=== PATIENT | female | born 1935 | race Caucasian/White ===

== ENCOUNTER → 2019-12-21 13:28 | Outpatient (CLI) | payer MEDICARE, MEDICAID, SELFPAY ==
--- NOTE | 2019-12-21 | DI.ECHO.S_ITS ---
[facility] +---------+ : : [address] : : : : [id number] : : : : Phone: [phone]---------+ Echocardiogram Report + + :Name: DAVID MENDIETA Study Date: 12/21/2019 Height: 61 in : :[facility] Weight: 171 lb : : Gender: Female BSA: 1.8 m2 : :: 1935 Age: 83 yrs BP: 130/61 mmHg: :Reason For Study: DIZZINESS AND GIDDINESS : :Ordering Physician: JINNY, : :ALICE Performed By: Yasmin Calderon : :Referring: ALICE STEARNS : + + Interpretation Summary The left ventricle is mildly dilated. Left ventricular ejection fraction is estimated to be 40 +/- 5%. There has been no significant change in LVEF since the previous exam. The right ventricle is normal size. Right ventricular systolic function is at the lower limits of normal. There is a pacemaker lead in the right ventricle. No significant valvular pathology seen. Procedure: A two-dimensional transthoracic echocardiogram with color flow and Doppler was performed. The study quality was technically adequate. Comparison is made with the echocardiogram of 07/06/2017. The heart rate ranged between 56-65 bpm during the study. The patient was in normal sinus rhythm during the exam. The patient has a paced rhythm. Left Ventricle: The left ventricle is mildly dilated. Proximal septal thickening is noted. There is no thrombus. Left ventricular ejection fraction is estimated to be 40 +/- 5%. There has been no significant change since the previous exam. Diastolic parameters suggest a relaxation abnormality of the left ventricle, consistent with probable normal filling pressures. Right Ventricle: The right ventricle is normal size. There is a pacemaker lead in the right ventricle. Right ventricular systolic function is at the lower limits of normal. Atria: Both atria are normal in size. There is no Doppler evidence for an interatrial shunt. Mitral Valve: There is mild mitral annular calcification. The mitral valve chordae are thickened and/or calcified. There is mild mitral regurgitation. Compared to the prior echo study, there has been a decrease in the severity of mitral regurgitation. Aortic Valve: The aortic valve is trileaflet. The aortic valve opens well. The aortic valve is mildly calcified. There is no aortic valve stenosis. There is mild aortic regurgitation. Tricuspid Valve: The tricuspid valve is normal in structure and function. There is mild tricuspid regurgitation. The right ventricular systolic pressure is estimated to be at least 22 mmHg based on an estimated right atrial pressure of 3 mm Hg. Compared to the prior echo exam, there has been no change in TR severity. Pulmonic Valve: The pulmonic valve is normal in structure and function. There is mild pulmonic regurgitation. Great Vessels: The aortic root is normal size. The ascending aorta is at the upper limits of normal in size. Mild atherosclerotic plaque(s) in the aortic arch. The IVC is of normal diameter and collapses greater than 50% with a sniff. This suggests a low right atrial pressure of 3 mm Hg. Pericardium/ Pleura There is no pericardial effusion. There is no pleural effusion. MMode/2D Measurements & Calculations LVIDd: 5.6 cm LVOT diam: 2.0 cm LVIDs: 4.0 cm Ao root diam: 3.6 cm FS: 29.0 % asc Aorta Diam: 3.4 cm EPSS: 1.1 cm Ao Arch Diam (Prox Trans): 3.0 cm IVSd: 0.96 cm LVPWd: 0.79 cm LV mauro. diameter/BSA (cm/m^2): 3.2 LV sys. diameter/BSA (cm/m^2): 2.3 LA A2 area: 19.2 cm2 RA long axis: 5.4 cm LA A4 area: 17.2 cm2 RA area: 15.9 cm2 LA length (vol): 5.4 cm RA vol: 39.7 ml LA vol: 51.7 ml RA : 22.5 ml/m2 LA vol index: 29.2 ml/m2 IVC diam: 0.88 cm RVD1 (basal): 3.1 cm TAPSE: 1.7 cm Doppler Measurements & Calculations Ao V2 max: 119.6 cm/sec LVOT Max Santana: 92.8 cm/sec Ao V2 mean: 85.8 cm/sec LV V1 max P.4 mmHg Ao max P.7 mmHg LV V1 VTI: 20.4 cm Ao mean P.2 mmHg CARLTON(I,D): 2.8 cm2 Ao V2 VTI: 23.8 cm CARLTON(V,D): 2.5 cm2 sev ratio: 0.86 CARLTON indexed to BSA (cm^2/m^2): 1.6 MV E max santana: 62.3 cm/sec TR max santana: 216.6 cm/sec MV A max santana: 81.1 cm/sec TR max P.8 mmHg MV E/A: 0.77 Med Peak E' Santana: 4.6 cm/sec E/E' med: 13.4 Lat Peak E' Santana: 6.1 cm/sec E/E' lat: 10.2 E/e' average: 11.8 MV dec time: 0.32 sec SV(LVOT): 66.3 ml Reading Physician:04:51 PM
== END ==
PROVIDERS: PCP Family Medicine; Referring Provider Internal Medicine Cardiovascular Disease; Visit Provider Internal Medicine Cardiovascular Disease
DX: I08.3 Combined rheumatic disorders of mitral, aortic and tricuspid valves (principal); I70.0 Atherosclerosis of aorta; R42 Dizziness and giddiness
CPT/HCPCS: 93306

== ENCOUNTER → 2020-09-19 10:01 | Outpatient (CLI) | payer MEDICARE, MEDICAID, SELFPAY ==
--- NOTE | 2020-09-19 10:04 | DI.ECHO.S_ITS ---
[facility]---------+ [facility] +---------+ : : [address] : : : : [id number] : : : : Phone: [phone] +---------+ Echocardiogram Report + + :Name: DAVID MENDIETA Study Date: 09/19/2020 Height: 62 in : :[facility] ReadingLocation: Weight: 164 lb : : Gender: Female BSA: 1.8 m2 : :: 1935 Age: 84 yrs BP: 170/92 mmHg: :Reason For Study: SHORTNESS OF BREATH : :Ordering Physician: JINNY, : :ALICE Performed By: Yasmin Calderon : :Referring: ALICE STEARNS : + + Interpretation Summary The left ventricle is mildly dilated. The ejection fraction is estimated to be 40-45%. There has been no significant change in LVEF since the previous exam. There is a hypokinesis of inferior wall, extending into the posterior lateral wall as well as basal to mid anterolateral wall. Basal inferior septum hypokinetic as well.There is a worsening basal to mid anterolateral wall hypokinesis. The right ventricle is normal size. Right ventricular systolic function is mildly reduced. There is a pacemaker lead in the right ventricle. There is moderate mitral regurgitation. Compared to the prior echo study, there has been an increase in the severity of mitral regurgitation. There is moderate tricuspid regurgitation. Compared to the prior echo exam, there has been an increase in TR severity. The right ventricular systolic pressure is estimated to be at least 32 mmHg based on an estimated right atrial pressure of 3 mm Hg. Procedure: A two-dimensional transthoracic echocardiogram with color flow and Doppler was performed. The study quality was technically adequate. Comparison is made with the echocardiogram of 12/21/2019. A contrast injection of Definity was performed to improve assessment of LV function. The heart rate ranged between 47-57 bpm during the study. Left Ventricle: The left ventricle is mildly dilated. The estimated left ventricular end diastolic volume is 129 ml. There is normal left ventricular wall thickness. There is no thrombus. The ejection fraction is estimated to be 40-45%. There has been no significant change since the previous exam. There is a moderate dyssynchronous contraction pattern due to the paced rhythm. There is a hypokinesis of inferior wall, extending into the posterior lateral wall as well as basal to mid anterolateral wall. Basal inferior septum hypokinetic as well. E/E' med: 25.9. Right Ventricle: There is a pacemaker lead in the right ventricle. The right ventricle is normal size. Right ventricular systolic function is mildly reduced. Atria: The left atrium is severely dilated. The left atrium has significantly increased in size since the prior echo exam. There is a catheter/pacemaker lead seen in the right atrium. The right atrium is moderate to severely dilated. There is no Doppler evidence for an interatrial shunt. Mitral Valve: There is mild mitral annular calcification. The mitral valve leaflets appear mildly thickened, but open well. The mitral valve chordae are thickened and/or calcified. There is moderate mitral regurgitation. Compared to the prior echo study, there has been an increase in the severity of mitral regurgitation. Aortic Valve: The aortic valve is trileaflet. There is mild aortic valve sclerosis. There is no aortic valve stenosis. There is trace aortic regurgitation. Tricuspid Valve: The tricuspid valve is not well visualized. There is moderate tricuspid regurgitation. The right ventricular systolic pressure is estimated to be at least 32 mmHg based on an estimated right atrial pressure of 3 mm Hg. Compared to the prior echo exam, there has been an increase in TR severity. Pulmonic Valve: The pulmonic valve is not well seen, but is grossly normal. There is trace pulmonic regurgitation. Great Vessels: The aortic root is normal size. The dimensions of the ascending aorta are normal. The IVC is of normal diameter and collapses greater than 50% with a sniff. This suggests a low right atrial pressure of 3 mm Hg. Pericardium/ Pleura There is no pericardial effusion. There is no pleural effusion. MMode/2D Measurements & Calculations LVIDd: 5.2 cm LVOT diam: 2.0 cm LVIDs: 4.1 cm Ao root diam: 3.5 cm FS: 20.5 % asc Aorta Diam: 3.1 cm EPSS: 1.3 cm Ao Arch Diam (Prox Trans): 2.9 cm IVSd: 0.96 cm LVPWd: 1.0 cm LV mauro. diameter/BSA (cm/m^2): 2.9 LV sys. diameter/BSA (cm/m^2): 2.3 LA A2 area: 27.5 cm2 RA long axis: 6.2 cm LA A4 area: 25.1 cm2 RA area: 24.2 cm2 LA length (vol): 6.4 cm RA vol: 79.5 ml LA vol: 90.6 ml RA : 45.3 ml/m2 LA vol index: 51.6 ml/m2 IVC diam: 2.0 cm RVD1 (basal): 3.1 cm TAPSE: 1.4 cm Doppler Measurements & Calculations Ao V2 max: 167.5 cm/sec LVOT Max Santana: 93.1 cm/sec Ao V2 mean: 105.6 cm/sec LV V1 max P.5 mmHg Ao max P.2 mmHg LV V1 VTI: 18.1 cm Ao mean P.2 mmHg CARLTON(I,D): 1.5 cm2 Ao V2 VTI: 36.6 cm CARLTON(V,D): 1.7 cm2 sev ratio: 0.49 CARLTON indexed to BSA (cm^2/m^2): 0.87 MV E max santana: 129.9 cm/sec TR max santana: 267.8 cm/sec MV A max santana: 1.5 cm/sec TR max P.8 mmHg MV E/A: 85.1 PA V2 max: 124.5 cm/sec Med Peak E' Santana: 5.0 cm/sec PA V2 mean: 76.9 cm/sec E/E' med: 25.9 PA mean P.7 mmHg Lat Peak E' Santana: 7.7 cm/sec PA pr(Accel): 29.3 mmHg E/E' lat: 17.0 E/e' average: 21.4 MV dec time: 0.24 sec MR ERO: 0.21 cm2 MR PISA: 3.4 cm2 SV(LVOT): 55.8 ml MR flow rate: 114.1 cm3/sec MR PISA radius: 0.73 cm Reading Physician:06:07 PM
--- NOTE | 2020-09-19 17:24 | DI.NM.S_ITS ---
DATE OF SERVICE: 09/19/2020 PROCEDURE: Pharmacological perfusion study. INDICATIONS: Chest pain, exertional shortness of breath, known history of bypass surgery in 1986, inferoposterior ST-elevation [place] in November,, status post PCI of RCA. RADIOPHARMACEUTICAL: 25.0 millicurie technetium-99m Myoview IV was injected at stress and 12.0 millicurie technetium-99m Myoview IV was injected at rest. CARDIAC STRESS: The patient underwent IV Lexiscan study under the supervision of an attending staff. The patient remained hemodynamically stable. Baseline rhythm was sinus with QS complexes in V1 to V2 and T-wave inversion in inferior leads in V3 to V6. The patient also has intermittent idioventricular rhythm. During Lexiscan, there were no new convincing ischemic changes or new significant arrhythmias. However, patient had shortness of breath and chest discomfort. On a scale of 1 to 10, it was 5 in intensity. The patient received 100 mg of intravenous aminophylline and her symptoms got improved. RAW DATA: There is increased subdiaphragmatic activity. Breast shadow was seen, as well. Resting LV ejection fraction 53 percent and stress LV ejection fraction 58 percent with inferior wall hypokinesis. Resting end-diastolic volume 136 mL. TID ratio 1.06, which is within normal limits. Lung/heart ratio 0.42, which is within normal limits. MYOCARDIAL PERFUSION: Please note, this patient does not have any prone images. Stress supine and stress prone images were compared to each other. Resting supine images revealed large size, moderate to severely decreased perfusion of inferior wall extending into the inferolateral wall and inferior apex. During stress prone, the patient remained have almost similar inferior wall, inferoateral and inferoapical defect. However, there was new reversible moderate size mild to moderately decreased perfusion of distal anterior wall and distal anteroseptum. CONCLUSION: This is an abnormal myocardial perfusion study consistent with moderate size, mild to moderate reversible ischemia of distal anterior wall and distal anteroseptum. The patient has a large size infarction of inferior wall extending into the inferolateral wall and inferior apex. Baseline EKG revealed sinus, as well as intermittent idioventricular rhythm. During stress, patient had chest discomfort and shortness of breath. The patient received IV Lexiscan and was given 100 mg of intravenous aminophylline. LeftyLynn - SERVICE LINE COORDINATOR/fn/dave doc#: [id number]/job#: [id number] dd: 09/19/2020 17:02:00 dt: 09/19/2020 17:12:00 DICTATING MD/COPIES TO: Rachna Holland MD COPIES MNE: CAMERON;
== END ==
PROVIDERS: PCP Family Medicine; Referring Provider Internal Medicine Cardiovascular Disease; Visit Provider Internal Medicine Cardiovascular Disease
DX: I08.1 Rheumatic disorders of both mitral and tricuspid valves (principal); R94.39 Abnormal result of other cardiovascular function study; R06.02 Shortness of breath; R07.89 Other chest pain; I25.2 Old myocardial infarction; Z95.1 Presence of aortocoronary bypass graft; Z95.0 Presence of cardiac pacemaker
CPT/HCPCS: 78452; 93016; 93017; 93018; A9502; C8929; J2785; Q9957

== ENCOUNTER 2020-09-19 17:43 | Emergency (ER) | payer MEDICARE, MEDICAID, SELFPAY ==
[2020-09-19] VITALS (11 sets, daily range): BP systolic 125–205; BP diastolic 57–88; PULSE 50–54; RESP 15–29; TEMP 36.8; O2SAT 94–100; BMI 29.9
--- NOTE | 2020-09-19 18:01 | DI.RAD.S_ITS ---
PROCEDURE: XR CHEST 1V INDICATIONS: Chest pain TECHNIQUE: One view of the chest was acquired. COMPARISON: None. FINDINGS: Surgical changes and devices: Single lead left-sided cardiac pacemaker. Median sternotomy changes. Lungs and pleura: There is a 2.2 cm well-circumscribed right lateral upper lobe lung mass. There is probable retrocardiac atelectasis. No pleural effusions or pneumothorax. Mediastinum: Mediastinal contours appear normal. Right hilar structures appear prominent. Heart size is enlarged. Bones and chest wall: No suspicious bony lesions. Overlying soft tissues appear unremarkable. IMPRESSION: 1. Cardiomegaly without radiographic findings of acute CHF. 2. Probable retrocardiac atelectasis though underlying pneumonia is not excluded. 3. 2.2 cm circumscribed right lung mass and possible right hilar adenopathy. Recommend chest CT when the patient is able. Dictated by: Deja Michelle M.D. on 09/19/2020 at 18:28 Approved by: Deja Michelle M.D. on 09/19/2020 at 18:30
[2020-09-19] MEDS: ASPIRIN 81 MG CHEW TAB 324 MG PO (18:33)
[2020-09-19 18:35] LABS: Add Manual Diff / Slide Review NO; Basophils Absolute Auto 0 /uL (0-100); Basophils Percent Auto 0.5 % (0-2); Eosinophils Absolute Auto 100 /uL (0-450); Eosinophils Percent Auto 1.3 % (2-4); Hematocrit 39.6 % (36-46); Lymphocytes Absolute Auto 1900 /uL (1100-4500); Lymphocytes Percent Auto 18.6 % (25-40); Mean Corpuscular HGB Conc 32.9 % (30-36); Mean Corpuscular Hemoglobin 29.6 PG (26-34); Mean Corpuscular Volume 89.8 fL (80-100); Monocytes Absolute Auto 800 /uL (0-900); Monocytes Percent Auto 7.2 % (3-14); Neutrophils Absolute Auto 7600 /uL (1500-7000); Neutrophils Percent Auto 72.4 % (50-75); Platelet Count 120 X10^3/uL (150-400); White Blood Cell Count 10.4 X10^3/uL (4.5-11.0)
[2020-09-19 18:38] LABS: INR 1.1 (0.9-1.3); Prothrombin Time 12.1 SECONDS (10.1-12.7)
[2020-09-19 18:41] LABS: PTT Partial Thromboplastin Tim 33 SECONDS (26.4-36.2)
[2020-09-19 18:42] LABS: Alanine Aminotransferase 19 IU/L (<35); Albumin 4.1 g/dL (3.5-5.0); Albumin Globulin Ratio 1.3 (1.0-2.8); Alkaline Phosphatase 118 U/L (38-126); Aspartate Aminotransferase 29 IU/L (14-36); BUN Creatinine Ratio 18.2 (6-22); Bilirubin Total 0.5 mg/dL (0.2-1.3); Blood Urea Nitrogen 20 mg/dL (7-17); Calcium 9.5 mg/dL (8.4-10.2); Carbon Dioxide 21 mmol/L (22-32); Chloride 110 mmol/L (98-107); Creatine Kinase 146 U/L (30-135); Estimated Glomerular Filt Rate 47.6 mL/min (>60); Globulin 3.2 g/dL (1.7-4.1); Glucose 122 mg/dL (80-110); Lipase 72 U/L (23-300); Potassium 4.9 mmol/L (3.4-5.1); Sodium 140 mmol/L (137-145); Total Protein 7.3 g/dL (6.3-8.2)
[2020-09-19 18:54] LABS: NT-proBNP (BNP-Adult 18+) 2730 pg/mL (<450); Troponin I 0.016 ng/mL (0.01-0.034)
[2020-09-19 18:58] LABS: CKMB % Relative Index 3.3 % (1.5-5.0); HEMOLYSIS 20 (0-50)
[2020-09-19 18:59] LABS: COVID19 -Nasal RAPID Negative (Negative)
--- NOTE | 2020-09-19 19:14 | ED.CHESTPAIN ---
HPI - Chest Pain General Chief Complaint: Chest Pain Stated Complaint: CHEST PAIN, SHORT OF BREATH Time Seen by Provider: 09/19/20 17:56 Source: patient Mode of arrival: Wheelchair Limitations: no limitations History of Present Illness HPI narrative: Patient is an 84-year-old female. She is an insulin-dependent diabetic. Has hypertension. Has known coronary artery disease. Has had coronary artery bypass graft and also stent placement in the past. She has been evaluated by her painter helper sign within the past 2-3 months for occasional chest discomfort and worsening dyspnea on exertion. She was scheduled to have a risk stratification nuclear stress/perfusion study done however she put it off for a month. She was then able to schedule it and had a performed today. She was sent to us by her painter helper sign office after having an abnormal stress test which showed both fixed and reversible ischemia. It was also reported the patient had significant shortness of breath with walking into the appointment. At the time of my evaluation she states she is feeling at about her baseline. Is not having chest pain nor shortness of breath. Related Data Allergies Allergy/AdvReac Type Severity Reaction Status Date / Time lisinopril Allergy Verified 09/19/20 17:54 metformin Allergy Verified 09/19/20 17:54 Penicillins Allergy Verified 09/19/20 17:54 Review of Systems Constitutional Constitutional: Denies fatigue, Denies fever(s) and Denies headache(s) Eyes Comments: Patient is legally blind ENT Ears, Nose, Mouth, and Throat: Denies headache(s), Denies neck pain and Denies sore throat Cardiovascular Cardiovascular: Denies syncope, Denies rapid heart rate and Reports dyspnea (No shortness of breath currently) Comments: No chest pain currently but has had in the past Respiratory Respiratory: Reports dyspnea (No shortness of breath currently) Gastrointestinal Gastrointestinal: Denies abdominal pain, Denies nausea and Denies vomiting Genitourinary Genitourinary: Denies dysuria Genitourinary: Denies dysuria Musculoskeletal Musculoskeletal: Denies arthralgias, Denies myalgias and Denies neck pain Integumentary/Breasts Skin/Breast: Denies rash Neurologic Neurologic: Denies behavioral changes, Denies syncope and Denies headache(s) Psychiatric Psychiatric: Denies behavioral changes Endocrine Endocrine: Denies fatigue Hematologic/Lymphatic On Anticoagulants: No Allergic/Immunologic Allergic/Immunologic: Denies urticaria Patient History Medical History Blind in both eyes Coronary artery disease Insulin dependent diabetes mellitus Social History Smoking Status: Unknown if ever smoked Smoking Status: Unknown if ever smoked alcohol intake frequency: holidays/special occasions only Substance Use Type: does not use Exam Initial Vital Signs Initial Vital Signs: Vital Signs Temperature 98.2 F 09/19/20 17:45 Pulse Rate 54 L 09/19/20 17:45 Respiratory Rate 15 09/19/20 17:45 Blood Pressure 205/88 H 09/19/20 17:45 Pulse Oximetry 100 09/19/20 17:45 Const General: cooperative, comfortable and well developed Limitations: mental status not altered HENMT Head: normal to inspection and normocephalic Eyes General: appearance normal, both eyes and all related structures Resp Effort & Inspection: normal respiratory effort Auscultation: clear to auscultation bilaterally Cardio Rate: regular rate Rhythm: regular rhythm GI Inspection: non-distended Palpation: soft and No tender Skin Lesions: no lesions Rashes: no rashes Neuro General: patient alert, patient awake and patient oriented x3 Cognition: normal cognition Speech: speech normal Extrem General: capillary refill normal and No edema Psych Appearance: grossly normal and well kempt Scores GCS Reggie coma scale eye opening: Spontaneous Reggie coma scale verbal response: Orientated [place] coma scale motor response: Obey commands Reggie coma scale total score: 15 Course Orders Ordered: ED Orders 09/19/20 18:01 XR chest 1V Stat 09/19/20 18:20 Complete Blood Count AUTO DIFF Stat Comprehensive Metabolic Panel Stat Lipase Stat NT-proBNP (BNP-Adult 18+) Stat Partial Thromboplastin Time Stat Prothrombin Time INR Stat Troponin & CK Cardiac Panel Stat 09/19/20 18:37 COVID19 -Nasal swab/Pre-Proc Stat Heparin Sodium/Dextrose (Heparin Drip) 25,000 unit in 500 mls @ 17.853 mls/hr IV CONT ELADIO; Protocol Discontinued Medications Aspirin (Aspirin 81 Mg Chew Tab) 324 mg PO NOW ONE Stop: 09/19/20 18:01 Last Admin: 09/19/20 18:33 Dose: 324 mg Documented by: DMITRI Heparin Sodium (Porcine) (Heparin 5,000 Unit/Ml Vial) 4,000 unit IV NOW ONE Stop: 09/19/20 20:52 Vital Signs Vital signs: Vital Signs - 8 hr 09/19/20 17:45 09/19/20 19:00 09/19/20 19:01 Temperature 98.2 F Pulse Rate 54 L Respiratory Rate 15 20 20 Blood Pressure 205/88 H 139/72 Pulse Oximetry 100 100 100 09/19/20 19:30 09/19/20 20:00 09/19/20 20:01 Temperature Pulse Rate 51 L 50 L 50 L Respiratory Rate 29 H Blood Pressure 131/58 L Pulse Oximetry 98 98 98 MDM - Chest Pain Medical Records Data Attestation: I reviewed the patient's medical records. Lab Data Attestation: I reviewed the patient's lab results. Result diagrams: 09/19/20 18:20 09/19/20 18:20 Labs: Lab Results 09/19/20 09/19/20 09/19/20 Range/Units 18:20 18:20 18:20 WBC 10.4 (4.5-11.0) X10^3/uL RBC 4.40 (4.0-5.2) X10^6/uL Hgb 13.0 (12.0-16.0) g/dL Hct 39.6 (36-46) % MCV 89.8 (80-100) fL MCH 29.6 (26-34) PG MCHC 32.9 (30-36) % RDW 15.0 H (11.6-14.8) % Plt Count 120 L (150-400) X10^3/uL Neut % (Auto) 72.4 (50-75) % Lymph % (Auto) 18.6 L (25-40) % [place] % (Auto) 7.2 (3-14) % Eos % (Auto) 1.3 L (2-4) % Baso % (Auto) 0.5 (0-2) % Neut # (Auto) 7600 H (1171-9916) /uL Lymph # (Auto) 1900 (2032-1133) /uL [place] # (Auto) 800 (0-900) /uL Eos # (Auto) 100 (0-450) /uL Baso # (Auto) 0 (0-100) /uL PT 12.1 (10.1-12.7) SECONDS INR 1.1 (0.9-1.3) APTT 33 (26.4-36.2) SECONDS Sodium 140 (137-145) mmol/L Potassium 4.9 (3.4-5.1) mmol/L Chloride 110 H (98-107) mmol/L Carbon Dioxide 21 L (22-32) mmol/L BUN 20 H (7-17) mg/dL Creatinine 1.10 H (0.52-1.04) mg/dL Estimated GFR 47.6 L (>60) mL/min BUN/Creatinine Ratio 18.2 (6-22) Glucose 122 H (80-110) mg/dL Calcium 9.5 (8.4-10.2) mg/dL Total Bilirubin 0.5 (0.2-1.3) mg/dL AST 29 (14-36) IU/L ALT 19 (<35) IU/L Alkaline Phosphatase 118 (38-126) U/L Total Creatine Kinase 146 H (30-135) U/L CK-MB (CK-2) 4.80 H (<2.37) ng/mL CK-MB (CK-2) Rel Index 3.3 (1.5-5.0) % Troponin I 0.016 (0.01-0.034) ng/mL NT-Pro-B Natriuret Pep 2730 H (<450) pg/mL Total Protein 7.3 (6.3-8.2) g/dL Albumin 4.1 (3.5-5.0) g/dL Globulin 3.2 (1.7-4.1) g/dL Albumin/Globulin Ratio 1.3 (1.0-2.8) Lipase 72 (23-300) U/L SARS-CoV-2 (PCR) (Negative) 09/19/20 Range/Units 18:37 WBC (4.5-11.0) X10^3/uL RBC (4.0-5.2) X10^6/uL Hgb (12.0-16.0) g/dL Hct (36-46) % MCV (80-100) fL MCH (26-34) PG MCHC (30-36) % RDW (11.6-14.8) % Plt Count (150-400) X10^3/uL Neut % (Auto) (50-75) % Lymph % (Auto) (25-40) % [place] % (Auto) (3-14) % Eos % (Auto) (2-4) % Baso % (Auto) (0-2) % Neut # (Auto) (5760-3557) /uL Lymph # (Auto) (4403-9973) /uL [place] # (Auto) (0-900) /uL Eos # (Auto) (0-450) /uL Baso # (Auto) (0-100) /uL PT (10.1-12.7) SECONDS INR (0.9-1.3) APTT (26.4-36.2) SECONDS Sodium (137-145) mmol/L Potassium (3.4-5.1) mmol/L Chloride (98-107) mmol/L Carbon Dioxide (22-32) mmol/L BUN (7-17) mg/dL Creatinine (0.52-1.04) mg/dL Estimated GFR (>60) mL/min BUN/Creatinine Ratio (6-22) Glucose (80-110) mg/dL Calcium (8.4-10.2) mg/dL Total Bilirubin (0.2-1.3) mg/dL AST (14-36) IU/L ALT (<35) IU/L Alkaline Phosphatase (38-126) U/L Total Creatine Kinase (30-135) U/L CK-MB (CK-2) (<2.37) ng/mL CK-MB (CK-2) Rel Index (1.5-5.0) % Troponin I (0.01-0.034) ng/mL NT-Pro-B Natriuret Pep (<450) pg/mL Total Protein (6.3-8.2) g/dL Albumin (3.5-5.0) g/dL Globulin (1.7-4.1) g/dL Albumin/Globulin Ratio (1.0-2.8) Lipase (23-300) U/L SARS-CoV-2 (PCR) Negative (Negative) Imaging Data Myocardial perfusion scan: Radiologist's Impression: [address] [id number] Medicine ReportSigned Patient: Lynn Mendieta LMR#: [id number]: 8Acct:[id number]/Sex: 84 / FDate of Service:Loc: NUCMAccession Number: Procedure: Ordering Provider: DATE OF SERVICE: 09/19/2020 PROCEDURE: Pharmacological perfusion study. INDICATIONS: Chest pain, exertional shortness of breath, known history of bypass surgery in 1986, inferoposterior ST-elevation SC in November,, status post PCI of RCA. RADIOPHARMACEUTICAL: 25.0 millicurie technetium-99m Myoview IV was injected at stress and 12.0 millicurie technetium-99m Myoview IV was injected at rest. CARDIAC STRESS: The patient underwent IV Lexiscan study under the supervision of an attending staff. The patient remained hemodynamically stable. Baseline rhythm was sinus with QS complexes in V1 to V2 and T-wave inversion in inferior leads in V3 to V6. The patient also has intermittent idioventricular rhythm. During Lexiscan, there were no new convincing ischemic changes or new significant arrhythmias. However, patient had shortness of breath and chest discomfort. On a scale of 1 to 10, it was 5 in intensity. The patient received 100 mg of intravenous aminophylline and her symptoms got improved. RAW DATA: There is increased subdiaphragmatic activity. Breast shadow was seen, as well. Resting LV ejection fraction 53 percent and stress LV ejection fraction 58 percent with inferior wall hypokinesis. Resting end-diastolic volume 136 mL. TID ratio 1.06, which is within normal limits. Lung/heart ratio 0.42, which is within normal limits. MYOCARDIAL PERFUSION: Please note, this patient does not have any prone images. Stress supine and stress prone images were compared to each other. Resting supine images revealed large size, moderate to severely decreased perfusion of inferior wall extending into the inferolateral wall and inferior apex. During stress prone, the patient remained have almost similar inferior wall, inferoateral and inferoapical defect. However, there was new reversible moderate size mild to moderately decreased perfusion of distal anterior wall and distal anteroseptum. CONCLUSION: This is an abnormal myocardial perfusion study consistent with moderate size, mild to moderate reversible ischemia of distal anterior wall and distal anteroseptum. The patient has a large size infarction of inferior wall extending into the inferolateral wall and inferior apex. Baseline EKG revealed sinus, as well as intermittent idioventricular rhythm. During stress, patient had chest discomfort and shortness of breath. The patient received IV Lexiscan and was given 100 mg of intravenous aminophylline. 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 : : : : [place], [place] : : : : [id number] : : : : Phone: [phone]+ Echocardiogram Report + + :Name: LYNN MENDIETA Study Date: 09/19/2020 Height: 62 in : :[facility] ReadingLocation: Weight: 164 lb : : Gender: Female BSA: 1.8 m2 : :: 1935 Age: 84 yrs BP: 170/92 mmHg: :Reason For Study: SHORTNESS OF BREATH : :Ordering Physician: JINNY, : :LAICE Performed By: Yasmin Calderon : :Referring: ALICE STEARNS : + + Interpretation Summary The left ventricle is mildly dilated. The ejection fraction is estimated to be 40-45%. There has been no significant change in LVEF since the previous exam. There is a hypokinesis of inferior wall, extending into the posterior lateral wall as well as basal to mid anterolateral wall. Basal inferior septum hypokinetic as well.There is a worsening basal to mid anterolateral wall hypokinesis. The right ventricle is normal size. Right ventricular systolic function is mildly reduced. There is a pacemaker lead in the right ventricle. There is moderate mitral regurgitation. Compared to the prior echo study, there has been an increase in the severity of mitral regurgitation. There is moderate tricuspid regurgitation. Compared to the prior echo exam, there has been an increase in TR severity. The right ventricular systolic pressure is estimated to be at least 32 mmHg based on an estimated right atrial pressure of 3 mm Hg. Procedure: A two-dimensional transthoracic echocardiogram with color flow and Doppler was performed. The study quality was technically adequate. Comparison is made with the echocardiogram of 12/21/2019. A contrast injection of Definity was performed to improve assessment of LV function. The heart rate ranged between 47-57 bpm during the study. Left Ventricle: The left ventricle is mildly dilated. The estimated left ventricular end diastolic volume is 129 ml. There is normal left ventricular wall thickness. There is no thrombus. The ejection fraction is estimated to be 40-45%. There has been no significant change since the previous exam. There is a moderate dyssynchronous contraction pattern due to the paced rhythm. There is a hypokinesis of inferior wall, extending into the posterior lateral wall as well as basal to mid anterolateral wall. Basal inferior septum hypokinetic as well. E/E' med: 25.9. Right Ventricle: There is a pacemaker lead in the right ventricle. The right ventricle is normal size. Right ventricular systolic function is mildly reduced. Atria: The left atrium is severely dilated. The left atrium has significantly increased in size since the prior echo exam. There is a catheter/pacemaker lead seen in the right atrium. The right atrium is moderate to severely dilated. There is no Doppler evidence for an interatrial shunt. Mitral Valve: There is mild mitral annular calcification. The mitral valve leaflets appear mildly thickened, but open well. The mitral valve chordae are thickened and/or calcified. There is moderate mitral regurgitation. Compared to the prior echo study, there has been an increase in the severity of mitral regurgitation. Aortic Valve: The aortic valve is trileaflet. There is mild aortic valve sclerosis. There is no aortic valve stenosis. There is trace aortic regurgitation. Tricuspid Valve: The tricuspid valve is not well visualized. There is moderate tricuspid regurgitation. The right ventricular systolic pressure is estimated to be at least 32 mmHg based on an estimated right atrial pressure of 3 mm Hg. Compared to the prior echo exam, there has been an increase in TR severity. Pulmonic Valve: The pulmonic valve is not well seen, but is grossly normal. There is trace pulmonic regurgitation. Great Vessels: The aortic root is normal size. The dimensions of the ascending aorta are normal. The IVC is of normal diameter and collapses greater than 50% with a sniff. This suggests a low right atrial pressure of 3 mm Hg. Pericardium/ Pleura There is no pericardial effusion. There is no pleural effusion. MMode/2D Measurements & Calculations LVIDd: 5.2 cm LVOT diam: 2.0 cm LVIDs: 4.1 cm Ao root diam: 3.5 cm FS: 20.5 % asc Aorta Diam: 3.1 cm EPSS: 1.3 cm Ao Arch Diam (Prox Trans): 2.9 cm IVSd: 0.96 cm LVPWd: 1.0 cm LV mauro. diameter/BSA (cm/m^2): 2.9 LV sys. diameter/BSA (cm/m^2): 2.3 LA A2 area: 27.5 cm2 RA long axis: 6.2 cm LA A4 area: 25.1 cm2 RA area: 24.2 cm2 LA length (vol): 6.4 cm RA vol: 79.5 ml LA vol: 90.6 ml RA : 45.3 ml/m2 LA vol index: 51.6 ml/m2 IVC diam: 2.0 cm RVD1 (basal): 3.1 cm TAPSE: 1.4 cm Doppler Measurements & Calculations Ao V2 max: 167.5 cm/sec LVOT Max Santana: 93.1 cm/sec Ao V2 mean: 105.6 cm/sec LV V1 max P.5 mmHg Ao max P.2 mmHg LV V1 VTI: 18.1 cm Ao mean P.2 mmHg CARLTON(I,D): 1.5 cm2 Ao V2 VTI: 36.6 cm CARLTON(V,D): 1.7 cm2 sev ratio: 0.49 CARLTON indexed to BSA (cm^2/m^2): 0.87 MV E max santana: 129.9 cm/sec TR max santana: 267.8 cm/sec MV A max santana: 1.5 cm/sec TR max P.8 mmHg MV E/A: 85.1 PA V2 max: 124.5 cm/sec Med Peak E' Santana: 5.0 cm/sec PA V2 mean: 76.9 cm/sec E/E' med: 25.9 PA mean P.7 mmHg Lat Peak E' Santana: 7.7 cm/sec PA pr(Accel): 29.3 mmHg E/E' lat: 17.0 E/e' average: 21.4 MV dec time: 0.24 sec MR ERO: 0.21 cm2 MR PISA: 3.4 cm2 SV(LVOT): 55.8 ml MR flow rate: 114.1 cm3/sec MR PISA radius: 0.73 cm Reading Physician:06:07 PM Chest x-ray: Radiologist's Impression: [address] [id number] ReportSigned Patient: Lynn Mendieta LMR#: [id number]: 8Acct:[id number]/Sex: 84 / FDate of Service: 09/19/20Loc: EDAccession Number: [id number] Procedure: XR chest 1V Ordering Provider: Mehrdad Das D.O. PROCEDURE: XR CHEST 1V INDICATIONS: Chest pain TECHNIQUE: One view of the chest was acquired. COMPARISON: None. FINDINGS: Surgical changes and devices: Single lead left-sided cardiac pacemaker. Median sternotomy changes. Lungs and pleura: There is a 2.2 cm well-circumscribed right lateral upper lobe lung mass. There is probable retrocardiac atelectasis. No pleural effusions or pneumothorax. Mediastinum: Mediastinal contours appear normal. Right hilar structures appear prominent. Heart size is enlarged. Bones and chest wall: No suspicious bony lesions. Overlying soft tissues appear unremarkable. IMPRESSION: 1. Cardiomegaly without radiographic findings of acute CHF. 2. Probable retrocardiac atelectasis though underlying pneumonia is not excluded. 3. 2.2 cm circumscribed right lung mass and possible right hilar adenopathy. Recommend chest CT when the patient is able. Dictated by: Deja Michelle M.D. on 09/19/2020 at 18:28 Approved by: Deja Michelle M.D. on 09/19/2020 at 18:30 ECG Data Attestation: I personally reviewed and interpreted this ECG as follows: Prior ECG tracings: not available for review Interpretation: Ventricularly paced Rate of 53 Occasional sinus beats. MDM Narrative Medical decision making narrative: Patient has no chest pain nor shortness of breath here in the ER but did have a abnormal nuclear perfusion stress test today. She was sent to this emergency department for initial workup with anticipation that she be transferred to where her painter helper sign services located. The echocardiogram and nuclear stress test included in this note is for reference purposes only. He was performed earlier today and not out of the emergency department. She is paced on her EKG. Her troponin is not elevated. Dr. Stearns with cardiology recommended that she be placed on heparin which was started. She was given an aspirin. Discussed the case with Dr. Swan with Medicine who accepts the patient for transfer. Informed of the need for transfer to the patient. She expressed understanding. She is currently stable for transfer. Discharge Plan Departure Patient Disposition: [facility] Clinical Impression: Unstable angina pectoris Referrals: Devin Doherty MD [Primary Care Provider] -
[2020-09-19] MEDS: HEPARIN 5,000 UNIT/ML VIAL 4000 UNIT IV (20:59)
[2020-09-19] MEDS: HEPARIN DRIP 25,000 UNIT/500 ML IV.SOLN 18 UNIT IV (21:00)
--- NOTE | 2020-09-26 13:27 | PC.NURSE ---
:ate Entry: Per RN patient had Heparin started in the ED and was transfered to [facility] with Heparin gtt infusing.
--- NOTE | 2020-10-02 22:52 | PC.NURSE ---
Late entry, Heparin drip infusing at 18ml, stop time 2200. Pt transferred to [facility] with infusion.
== END 2020-09-19 21:45 | disposition short-term general hospital (02) ==
PROVIDERS: Emergency Provider Emergency Medicine; PCP Family Medicine
DX: I25.110 Atherosclerotic heart disease of native coronary artery with unstable angina pectoris (principal); Z95.5 Presence of coronary angioplasty implant and graft; R06.02 Shortness of breath; Z20.822 Contact with and (suspected) exposure to COVID-19
CPT/HCPCS: 36415; 71045; 78452; 80053; 82550; 82553; 83690; 83880; 84484; 85025; 85610; 85730; 87635; 93005; 93010; 93017; 96365; 96375; 99284; C9803; A9502; C8929; J1644; J2785; Q9957

== ENCOUNTER → 2022-01-21 10:24 | Outpatient (CLI) | payer MEDICARE, MEDICAID, SELFPAY ==
--- NOTE | 2022-01-21 | DI.US.S_ITS ---
PROCEDURE: US ARTERIAL DUPLEX LE BI INDICATIONS: PAIN IN LEGS TECHNIQUE: Color and pulse Doppler interrogation was performed of both lower extremity arterial systems, with image documentation. COMPARISON: None. FINDINGS: Right lower extremity: Common femoral artery: 110 cm/sec, with biphasic flow. Deep femoral artery: 64 cm/sec, with biphasic flow. Proximal superficial femoral artery: 68 cm/sec, with biphasic flow. Mid superficial femoral artery: 157 cm/sec, with biphasic flow. Distal superficial femoral artery: 60 cm/sec, with biphasic flow. Popliteal artery: 78 cm/sec, with biphasic flow. Posterior tibial artery: 100 cm/sec, with biphasic flow. Anterior tibial artery/dorsalis pedis: Occluded Mitchell-scale imaging description: Diffuse plaque. Stenosis of the mid SFA with velocity elevation, indicating a 50% or greater stenosis. Occluded anterior tibial. Left lower extremity: Common femoral artery: 78 cm/sec, with biphasic flow. Deep femoral artery: 67 cm/sec, with biphasic flow. Proximal superficial femoral artery: 67 cm/sec, with biphasic flow. Mid superficial femoral artery: 73 cm/sec, with biphasic flow. Distal superficial femoral artery: 40 cm/sec, with biphasic flow. Popliteal artery: 41 cm/sec, with biphasic flow. Posterior tibial artery: 106 cm/sec, with monophasic flow. Anterior tibial artery/dorsalis pedis: 130 cm/sec, with monophasic flow. Mitchell-scale imaging description: Diffuse plaque. No focal significant stenosis from the common femoral through the popliteal. Distal runoff disease. IMPRESSION: 1. No evidence of inflow stenosis, based on common femoral waveforms. 2. Diffuse bilateral plaque. 3. On the right, there is a focal mid SFA stenosis of 50% or greater. 4. Bilateral small vessel disease. Dictated by: Juan Carlos Huitron M.D. on 01/21/2022 at 13:17 Approved by: Juan Carlos Huitron M.D. on 01/21/2022 at 13:26
== END ==
PROVIDERS: PCP Internal Medicine; Referring Provider Internal Medicine Cardiovascular Disease; Visit Provider Internal Medicine Cardiovascular Disease
DX: I70.203 Unspecified atherosclerosis of native arteries of extremities, bilateral legs (principal); M79.604 Pain in right leg; M79.605 Pain in left leg
CPT/HCPCS: 93925

== ENCOUNTER → 2022-02-26 12:00 | Outpatient (CLI) | payer MEDICARE, MEDICAID, SELFPAY ==
--- NOTE | 2022-02-26 12:02 | DI.ECHO.S_ITS ---
[facility] +---------+ [facility] +---------+ : : [address] : : : : [id number] : : : : Phone: [phone]---------+ Echocardiogram Report + + :Name: DAVID MENDIETA Study Date: 02/26/2022 Height: 61 in : :[facility] ReadingLocation: Weight: 160 lb : : Gender: Female BSA: 1.7 m2 : :: 1935 Age: 86 yrs BP: 130/76 mmHg: :Reason For Study: ISCHEMIC CARDIOMYOPATHY : :Ordering Physician: DELMIS, : :ELIECER Performed By: Yasmin Calderon : :Referring: ELIECER DOOLEY : + + Interpretation Summary 1) Normal left ventricular size with mildly reduced systolic function (EF about 45%). 2) Basal to inferior wall is akinetic. The anterolateral wall is severely hypokinetic. The anterior wall motion is normal. The inferolateral wall motion also appears preserved. 3) Normal right ventricular size with mildly reduced function. Pacemaker lead is visualized in the RV. 4) No significant valvular abnormalities. 5) Compared to the Echo done 09/19/2020, LVEF has improved slightly from 40-45% to 45% on this study. Procedure: A two-dimensional transthoracic echocardiogram with color flow and Doppler was performed. The study quality was technically adequate. Comparison is made with the echocardiogram of 09/19/2020. A contrast injection of Definity was performed to improve assessment of LV function. The patient has a paced rhythm. The heart rate ranged between 60 bpm during the study. Left Ventricle: The left ventricle is normal in size. There is mild concentric left ventricular hypertrophy. Left ventricular ejection fraction is estimated to be 45 +/- 5%. There is a moderate dyssynchronous contraction pattern due to the paced rhythm. Basal to inferior wall is akinetic. The anterolateral wall is severely hypokinetic. The anterior wall motion is normal. The inferolateral wall motion also appears preserved. Right Ventricle: The right ventricle is grossly normal size. There is a pacemaker lead in the right ventricle. Right ventricular systolic function is mildly reduced. Atria: The left atrial size is normal. Right atrial size is normal. There is no Doppler evidence for an interatrial shunt. Mitral Valve: The mitral valve leaflets appear mildly thickened, but open well. There is mild mitral annular calcification. There is mild mitral regurgitation. Aortic Valve: The aortic valve is trileaflet. The aortic valve is slightly calcified. There is no aortic valve stenosis. There is mild aortic regurgitation. Tricuspid Valve: The tricuspid valve is normal in structure and function. There is mild tricuspid regurgitation. The right ventricular systolic pressure is estimated to be at least 27 mmHg based on an estimated right atrial pressure of 3 mm Hg. Pulmonic Valve: The pulmonic valve is not well seen, but is grossly normal. There is mild pulmonic regurgitation. Great Vessels: The aortic root is normal size. The dimensions of the ascending aorta are normal. The IVC is of normal diameter and collapses greater than 50% with a sniff. This suggests a low right atrial pressure of 3 mm Hg. Pericardium/ Pleura There is no pericardial effusion. There is no pleural effusion. MMode/2D Measurements & Calculations LVIDd: 5.0 cm LVOT diam: 2.1 cm LVIDs: 3.9 cm Ao root diam: 3.6 cm FS: 21.9 % asc Aorta Diam: 3.4 cm EPSS: 1.5 cm Ao Arch Diam (Prox Trans): 3.1 cm IVSd: 1.0 cm LVPWd: 1.3 cm LV mauro. diameter/BSA (cm/m^2): 2.9 LV sys. diameter/BSA (cm/m^2): 2.3 LA A2 area: 17.7 cm2 RA long axis: 5.0 cm LA A4 area: 20.1 cm2 RA area: 13.7 cm2 LA length (vol): 5.7 cm RA vol: 32.0 ml LA vol: 53.3 ml RA : 18.6 ml/m2 LA vol index: 31.0 ml/m2 IVC diam: 0.66 cm TAPSE: 1.7 cm Doppler Measurements & Calculations Ao V2 max: 122.4 cm/sec LVOT Max Santana: 70.8 cm/sec Ao V2 mean: 85.2 cm/sec LV V1 max P.0 mmHg Ao max P.0 mmHg LV V1 VTI: 14.8 cm Ao mean P.2 mmHg CARLTON(I,D): 2.0 cm2 Ao V2 VTI: 25.6 cm CARLTON(V,D): 2.0 cm2 sev ratio: 0.58 CARLTON indexed to BSA (cm^2/m^2): 1.2 MV E max santana: 72.9 cm/sec TR max santana: 243.0 cm/sec MV A max santana: 93.2 cm/sec TR max P.6 mmHg MV E/A: 0.78 PA V2 max: 80.4 cm/sec Med Peak E' Santana: 4.9 cm/sec PA V2 mean: 54.0 cm/sec E/E' med: 14.8 PA mean P.3 mmHg Lat Peak E' Santana: 6.1 cm/sec PA pr(Accel): 13.9 mmHg E/E' lat: 11.9 E/e' average: 13.4 MV dec time: 0.33 sec SV(LVOT): 51.1 ml Reading Physician:07:[id number] PM
== END ==
PROVIDERS: PCP Internal Medicine; Referring Provider Internal Medicine Cardiovascular Disease; Visit Provider Internal Medicine Cardiovascular Disease
DX: I08.3 Combined rheumatic disorders of mitral, aortic and tricuspid valves (principal); I25.5 Ischemic cardiomyopathy; Z95.0 Presence of cardiac pacemaker
CPT/HCPCS: C8929; Q9957

== ENCOUNTER → 2023-02-05 13:52 | Outpatient (CLI) | payer MEDICARE, MEDICAID, SELFPAY ==
--- NOTE | 2023-02-05 | DI.ECHO.S_ITS ---
[place] +---------+ Hospital +---------+ : : [address] : [address] : : : : [id number] : : : : Phone: [phone] +---------+ Echocardiogram Report + + :Name: DAVID MENDIETA Study Date: 02/05/2023 Height: 61 in : :[facility] ReadingLocation: Weight: 156 lb : : Gender: Female BSA: 1.7 m2 : :: 1935 Age: 87 yrs BP: 134/84 mmHg: :Reason For Study: ischemic cardiomyopathy : : Performed By: Jenny Heredia : :Referring: ELIECER DOOLEY : + + Interpretation Summary 1) Normal left ventricular size with mildly to moderately reduced systolic function (EF 40-45%). 2) Basal to inferior wall is akinetic. The anterolateral wall is severely hypokinetic. 3) Normal right ventricular size with mildly reduced function. Pacemaker lead is visualized in the RV. 4) No significant valvular abnormalities. 5) Compared to the Echo done 02/26/2022, no significant change. Procedure: A two-dimensional transthoracic echocardiogram with color flow and Doppler was performed. The study quality was technically difficult. A contrast injection of Definity was performed to improve assessment of LV function. Comparison is made with the echocardiogram of 02/26/2022. The heart rate ranged between 101-115 bpm during the study. Left Ventricle: The left ventricle is normal in size and wall thickness. There is no thrombus. There is no ventricular septal defect visualized. The ejection fraction is estimated to be 40-45%. There has been no significant change since the previous exam. Basal to inferior wall is akinetic. The anterolateral wall is severely hypokinetic. Diastolic function could not be accurately assessed due to paced rhythm. Right Ventricle: The right ventricle is not well visualized. There is a pacemaker lead in the right ventricle. The right ventricle is normal size. Right ventricular systolic function is mildly reduced. Atria: The left atrial size is normal. Right atrium not well visualized. There is a catheter/pacemaker lead seen in the right atrium. There is no Doppler evidence for an interatrial shunt. Mitral Valve: The mitral valve leaflets appear mildly thickened, but open well. There is mild mitral annular calcification. There is no mitral valve stenosis. There is mild mitral regurgitation. Aortic Valve: The aortic valve is trileaflet. The aortic valve is slightly calcified. There is no aortic valve stenosis. There is trace aortic regurgitation. Tricuspid Valve: The tricuspid valve is normal in structure and function. There is mild tricuspid regurgitation. The right ventricular systolic pressure is estimated to be at least 26 mmHg based on an estimated right atrial pressure of 3 mm Hg. Pulmonic Valve: The pulmonic valve leaflets are thin and pliable; valve motion is normal. There is mild pulmonic regurgitation. Great Vessels: The aortic root is normal size. The ascending aorta is normal in size. The aortic arch is normal in size. The IVC is of normal diameter and collapses greater than 50% with a sniff. This suggests a low right atrial pressure of 3 mm Hg. Pericardium/ Pleura There is no pericardial effusion. There is no pleural effusion. MMode/2D Measurements & Calculations LVIDd: 4.9 cm LVOT diam: 2.1 cm LVIDs: 3.6 cm Ao root diam: 3.5 cm FS: 25.2 % asc Aorta Diam: 3.5 cm EPSS: 1.3 cm Ao Arch Diam (Prox Trans): 2.9 cm IVSd: 0.92 cm LVPWd: 0.94 cm LV mauro. diameter/BSA (cm/m^2): 2.9 LV sys. diameter/BSA (cm/m^2): 2.1 LA A2 area: 20.7 cm2 IVC diam: 0.90 cm LA A4 area: 20.0 cm2 LA length (vol): 6.4 cm LA vol: 55.4 ml LA vol index: 32.6 ml/m2 Doppler Measurements & Calculations Ao V2 max: 137.0 cm/sec LVOT Max Delmy: 90.2 cm/sec Ao V2 mean: 98.0 cm/sec LV V1 max P.3 mmHg Ao max P.5 mmHg LV V1 VTI: 19.7 cm Ao mean P.2 mmHg CARLTON(I,D): 2.3 cm2 Ao V2 VTI: 31.3 cm CARLTON(V,D): 2.4 cm2 sev ratio: 0.63 CARLTON indexed to BSA (cm^2/m^2): 1.3 MV E max delmy: 84.4 cm/sec TR max delmy: 243.0 cm/sec MV A max delmy: 80.8 cm/sec TR max P.6 mmHg MV E/A: 1.0 PA V2 max: 59.9 cm/sec Med Peak E' Delmy: 3.1 cm/sec PA V2 mean: 46.3 cm/sec E/E' med: 26.9 PA mean P.93 mmHg Lat Peak E' Delmy: 6.2 cm/sec PA pr(Accel): 34.0 mmHg E/E' lat: 13.7 E/e' average: 20.3 MV dec time: 0.21 sec SV(LVOT): 71.3 ml Reading Physician:04:50 PM
== END ==
PROVIDERS: PCP Internal Medicine; Referring Provider Internal Medicine Cardiovascular Disease; Visit Provider Internal Medicine Cardiovascular Disease
DX: I25.5 Ischemic cardiomyopathy (principal); I08.1 Rheumatic disorders of both mitral and tricuspid valves
CPT/HCPCS: 93306; Q9957